=== PATIENT | female | born 1960 | race Caucasian/White ===

== ENCOUNTER 2023-09-20 05:50 | Day surgery (SDC) | payer MEDICARE ==
[2023-08-02 13:15] VITALS: BP 120/83
[2023-09-13 14:04] VITALS: BP 120/83
[~2023-09-20] VITALS: Ht 167.6 cm; Wt 91.0 kg
[~2023-09-20 05:50] MED LIST: CELEBREX200 MG PO; ESCITALOPRAM OX20 MG PO; HUMIRA40 MG/0.4 SUB-Q; IBUPROFEN800 MG PO; LAMICTAL100 MG PO; LEVOTHYROXINE75 MC1 PO; LIOTHYRONINE SO5 MCG PO; LITHIUM CARBON300 MG PO; MOVE FREE ULTR1 EAC2 PO; NEURONTIN100 MG PO; OMEPRAZOLE20 MG PO; PENICILLIN V P500 MG PO; PREDNISONE5 MG PO; SEROQUEL25 MG PO
[2023-09-20 06:11] VITALS: BP 107/73
--- NOTE | 2023-09-20 07:17 | NUR ---
DS ROUNDS. 15 MINUTES. PROVIDED SUPPORTIVE PRESENCE; PROVIDED PRAYER. PT EXPRESSED GRATITUDE.
[2023-09-20 09:39] VITALS: BP 112/78
--- NOTE | 2023-09-20 09:45 | NUR ---
09/20/23 0945 Yuliet Bradley 0827 PT TO PACU FROM OR. ORAL AIRWAY IN PLACE WITH MASK AND O2 AT 10L. 0830 ORAL AIRWAY DC'D. PT OCCASIONALLY COUGHING. PT SUCTIONED FOR SCANT AMOUNT OF BLOOD TINGED SPUTUM. AIRLINE RADIO OPERATOR REPORTED THAT PT NEEDED TO BE SUCTIONED IN OR ALSO. 0833 O2 DCD. PT SATS REMEIN IN MID TO HIGH 90S. 0840 DR FIGUEROA AT BEDSIDE. 0846 PT STATES NEED TO USE BATHROOM. PT TRANSFERRED TO BATHROOM PER WC, TOLERATED WELL. PT STATED "I PASSED A LOT OF GAS AND FEEL BETTER". 0848 PT CONTINUES TO PASS GAS, IS AWAKE AND ORIENTED. 0918 PT'S IV DC'D. 0924 DC INSTRUCTIONS GIVEN - VERBAL AND WRITTEN. ALSO GAVE HANDOUTS OF DIVERTICULOSIS AND POLYPS.
--- NOTE | 2023-09-21 15:41 | OR ---
[facility] [address], [place] [address] Signed DATE OF OPERATION: 09/20/2023 SURGEON: Purvi Figueroa MD PREOPERATIVE DIAGNOSES: 1. Chronic epigastric abdominal pain. 2. Chronic diarrhea. 3. History of treated Helicobacter pylori gastritis. 4. Esophagitis. 5. Gastroesophageal reflux disease. 6. Chews snuff. 7. NSAID use. 8. Father with a history of colon cancer in his 60s. 9. Intermittent fecal incontinence. 10. Internal hemorrhoids. 11. Minimal diverticulosis. 12. History of tubular adenomatous polyp in 2021 at age 62. POSTOPERATIVE DIAGNOSES: 1. Mild diffuse gastritis. 2. Small hiatal hernia (less than or equal to 2 cm). 3. GE junction at 33 cm. 4. 5 mm polyps x2 in proximal right colon. 5. 4 mm polyp in the distal right colon. 6. 4 mm polyp at 25 cm in sigmoid colon. 7. 4 mm polyps x2 at 20 cm in sigmoid colon. 8. Minimal sigmoid diverticulosis. PROCEDURES: 1. Esophagogastroduodenoscopy with CLOtest and biopsies of the duodenum, pyloric bulb, and antrum. 2. Colonoscopy with hot biopsies and random cold biopsies. ESTIMATED BLOOD LOSS: None. INDICATIONS: Yoly is a 63-year-old female with significant bipolar disorder, seizure disorder, obstructive sleep apnea, chronic kidney disease, anxiety, and other issues. She was asked to see me for both upper and lower endoscopy. We can see her list of issues as Electronically Signed By: PURVI FIGUEROA MD 09/20/23 8629 Electronically Signed By: PURVI FIGUEROA MD 09/21/23 5110 PATIENT NAME: YOLY DAWN OPERATIVE REPORT DATE OF : 56 REPORT #: [id number] PHYSICIAN: PURVI FIGUEROA MD PCP: BILL WRAY DO REPORT IS CONFIDENTIAL AND NOT TO BE RELEASED WITHOUT AUTHORIZATION [facility] [address], [place] [address] Signed dictated above. We know she had upper and lower endoscopy in 2011 at the age 52 [address] Jamal Beltre in the [facility]. Also, she had upper and lower endoscopy in November 2021 at the age of 60 [address] Azul Riddle at [facility] in [place], [place]. She is now moved to [place], [place]. She has established with a new primary care provider. She was asked to see me as a local general surgeon to repeat the upper and lower endoscopy because of ongoing symptoms. In the office, I gave her a pamphlet on upper and lower endoscopy. We had reviewed the nature of the two tests. There is risk including, but not limited to gas bloating, crampy abdominal pain, bleeding, perforation requiring surgery, and missed diagnosis. We also reviewed the written instructions for a bowel prep line by line. In addition, because of her extensive medical history, we asked for monitored anesthesia care propofol infusion, that proved to be a patricia decision as she took a large amount of propofol and was still moving and coughing quite a bit. She had expressed understanding and wished to proceed. DESCRIPTION OF PROCEDURE: Yoly was taken into our endoscopy suite and placed in the supine semi-recumbent position. The posterior oropharynx was anesthetized with lidocaine spray. A bite block was utilized for the case. She was given monitored anesthesia care, propofol infusion per our nurse sheet hanger. The adult gastroscope was introduced and advanced under direct visualization of camera into the duodenum without difficulty. Her duodenum and pyloric channel were unremarkable. We went ahead and took a biopsy of the duodenum, pyloric channel because of the history of diarrhea. We went and took biopsies out of the antrum for CLOtest as well as pathologic review. She had mild diffuse erythematous changes throughout the stomach. There were no ulcerations. Upon retroflexion of scope, it looks like she has just a small hiatal hernia. The scope was withdrawn up through the area of the GE junction, which was compliant without stricture. There were no gastric or esophageal varices. Her Z-line actually is more or less intact. There was no distal esophagitis. There was no Sandoval mucosa. Her distal middle and upper esophagus were unremarkable. The vocal cords and her arytenoids were also unremarkable. After this, the gas was suctioned out. The gastroscope removed. Yoly tolerated her upper endoscopy quite well. Yoly was then rotated into the left lateral decubitus position. She was maintained on IV sedation with propofol per our nurse sheet hanger. A digital rectal exam was performed and this was unremarkable. She had no external hemorrhoids. She has good sphincter tone. There were no masses. The adult colonoscope was introduced, advanced all around into the cecum under direct visualization of camera without difficulty. Her prep was quite good. We could easily see the appendiceal orifice and the ileocecal valve. The scope was then slowly withdrawn. We took pictures throughout for photodocumentation. The above-mentioned polyps were easily removed with the help of hot biopsy forceps. We did see some diverticula in the sigmoid colon. They were small in size, few in number and scattered about. We also took random biopsies throughout the Electronically Signed By: PURVI FIGUEROA MD 09/20/23 4815 Electronically Signed By: PURVI FIGUEROA MD 09/21/23 2218 PATIENT NAME: YOLY DAWN OPERATIVE REPORT DATE OF : 56 REPORT #: [id number] PHYSICIAN: PURVI FIGUEROA MD PCP: BILL WRAY DO REPORT IS CONFIDENTIAL AND NOT TO BE RELEASED WITHOUT AUTHORIZATION [facility] [address] [place] [id number] Signed right transverse and left colon. The rectum itself was unremarkable. Upon retroflexion of scope, I really could not appreciate any obvious internal hemorrhoids today. After this, the gas was suctioned out, colonoscope removed. Yoly tolerated the procedure quite well. RECOMMENDATIONS: I will see Yoly back in my office in 7 to 14 days to review her results. Purvi Figueroa MD [facility]/REESEL /[id number] cc: Bill Wray DO Patient Chart Purvi Figueroa MD Copies: BILL WRAY ANDREW L MD ~ Electronically Signed By: PURVI FIGUEROA MD 09/20/23 1128 Electronically Signed By: PURVI FIGUEROA MD 09/21/23 1638 PATIENT NAME: YOLY DAWN OPERATIVE REPORT DATE OF : 56 REPORT #: [id number] PHYSICIAN: PURVI FIGUEROA MD PCP: BILL WRAY DO REPORT IS CONFIDENTIAL AND NOT TO BE RELEASED WITHOUT AUTHORIZATION
--- NOTE | 2023-09-22 14:18 | PATH ---
[facility] [address] [place], [place] [address] Signed SPECIMEN(S): A DUODENAL BIOPSY SPECIMEN(S): B DUODENAL BULB BIOPSY SPECIMEN(S): C ANTRUM/PYLORUS BIOPSY SPECIMEN(S): D MID HEPATIC FLEXURE COLON POLYP SPECIMEN(S): E RANDOM COLON BIOPSY SPECIMEN(S): F DISTAL HEPATIC FLEXURE COLON POLYP SPECIMEN(S): G SIGMOID POLYP AT 25 CM SPECIMEN(S): H SIGMOID POLYP AT 20 CM SPECIMEN SOURCE: A. DUODENAL BIOPSY B. DUODENAL BULB BIOPSY C. ANTRUM/PYLORUS BIOPSY D. MID HEPATIC FLEXURE COLON POLYP E. RANDOM COLON BIOPSY F. DISTAL HEPATIC FLEXURE COLON POLYP G. SIGMOID POLYP AT 25 CM H. SIGMOID POLYP AT 20 CM CLINICAL HISTORY: EGD/colonoscopy. Chronic diarrhea, epigastric pain. FINAL PATHOLOGIC DIAGNOSIS: A. Duodenal biopsy: - Benign duodenal mucosa, negative for specific diagnostic abnormality. B. Duodenal bulb biopsy: - Benign duodenal mucosa, negative for atypical epithelial features or pathologic inflammation. C. Antrum/pylorus biopsy: - Benign gastric-type mucosa with focal slight chronic inflammation. - Negative for evidence of Helicobacter organisms on routine HE stained sections. D. Mid hepatic flexure colon polyp: - Tubular adenoma (multiple fragments). E. Random colon biopsy: - Benign colonic mucosa, negative for specific diagnostic abnormality. F. Distal hepatic flexure colon polyp: - Tubular adenoma (two fragments). G. Sigmoid polyp at 25 cm: - Tubular adenoma (one fragment). H. Sigmoid polyp at 20 cm: PATIENT NAME: RODRIGO BURGOS PATHOLOGY DATE OF : 56 REPORT #: [id number] PHYSICIAN: AILEEN CABRERA PCP: MAGDALENA WRAY DO REPORT IS CONFIDENTIAL AND NOT TO BE RELEASED WITHOUT AUTHORIZATION [facility] [address] [place], [place] [address] Signed - Tubular adenoma (one fragment). JVR:jonny MICROSCOPIC EXAMINATION: Histologic sections of all submitted blocks are examined by light microscopy. These findings, together with the gross examination, support the pathologic diagnosis. GROSS DESCRIPTION: A. The specimen, labeled and designated "Veronica Burgos," and designated on the requisition "duodenum (NOS) biopsy," is received in formalin and consists of one rosales soft tissue fragment measuring 0.3 cm, the specimen is submitted entirely in (A1). B. The specimen, labeled and designated "Veronica Burgos," and designated on the requisition "duodenum bulb biopsy," is received in formalin and consists of one rosales soft tissue fragment measuring 0.2 cm, the specimen is submitted entirely in (B1). C. The specimen, labeled and designated "Veronica Burgos," and designated on the requisition "stomach, antrum/pylorus biopsy," is received in formalin and consists of one rosales soft tissue fragment measuring 0.3 cm, the specimen is submitted entirely in (C1). D. The specimen, labeled and designated "Veronica Burgos," and designated on the requisition "colon, hepatic flexure mid polypectomy," is received in formalin and consists of multiple fragments of rosales soft tissue measuring 2.0 x 0.6 x 0.2 cm in aggregate, all specimens are submitted entirely in (D1). E. The specimen, labeled and designated "Veronica Burgos," and designated on the requisition "random colon biopsies," is received in formalin and consists of three rosales soft tissue fragments measuring 0.3 to 0.6 cm, all specimens are submitted entirely in (E1). F. The specimen, labeled and designated "Veronica Burgos" and designated on the requisition "colon, distal hepatic flexure polypectomy," is received in formalin and consists of four rosales soft tissue fragments measuring 0.1 to 0.3 cm, all specimens are submitted entirely in (F1). G. The specimen, labeled and designated "Veronica Burgos," and designated on the requisition "colon, sigmoid polypectomy at 25 cm," is received in formalin and consists of three rosales soft tissue fragments measuring 0.2 to 0.4 cm, all specimens are submitted entirely in (G1). H. The specimen, labeled and designated "Veronica Burgos" and designated on the PATIENT NAME: RODRIGO BURGOS PATHOLOGY DATE OF : 56 REPORT #: [id number] PHYSICIAN: AILEEN CABRERA PCP: MAGDALENA WRAY DO REPORT IS CONFIDENTIAL AND NOT TO BE RELEASED WITHOUT AUTHORIZATION [facility] [address], [place] [address] Signed requisition "colon, sigmoid polypectomy at 20 cm," is received in formalin and consists of two rosales soft tissue fragments measuring 0.3 to 0.4 cm, all specimens are submitted entirely in (H1). MMA (under the direct supervision of a pathologist) The Gross Description was prepared using a voice recognition system. The report was reviewed for accuracy; however, sound-alike word errors, addition and/or deletions may occur. If there is any question about this report, please contact Client Services. ADDITIONAL NOTES: Immunohistochemical and/or in situ hybridization studies if performed in this case included appropriate positive controls that reacted as expected. This test was developed and its performance characteristics determined by [facility]. It has not been cleared or approved by the U.S. Food and Drug Administration. The FDA has determined that such clearance or approval is not necessary. This test is used for clinical purposes. It should not be regarded as investigational or for research. [facility] is certified under the Clinical Laboratory Improvement Amendments of 1988 (CLIA) as qualified to perform high complexity clinical laboratory testing. PERFORMING LABORATORY: Technical component was performed by [facility], [address] [place] [id number] (CLIA# [id number]). Professional interpretation was performed by [facility], [address] [place] [id number] (CLIA#: [id number]). Diagnostician: Kleber Irizarry MD Pathologist Electronically Signed 09/22/2023 Copies: ~ PATIENT NAME: RODRIGO BURGOS PATHOLOGY DATE OF : 56 REPORT #: [id number] PHYSICIAN: [email or web address] PCP: MAGDALENA WRAY DO REPORT IS CONFIDENTIAL AND NOT TO BE RELEASED WITHOUT AUTHORIZATION
== END 2023-09-20 09:25 | disposition home or self-care (01) ==
LOC: OPS 05:50 → DS 05:50 → OPS 09:00
PROVIDERS: ATTEND Colon & Rectal Surgery
PROC: 0DBM8ZX Excision of Descending Colon, Via Natural or Artificial Opening Endoscopic, Diagnostic (ICD-10-PCS; 2023-09-20)
PROC: 0DBL8ZX Excision of Transverse Colon, Via Natural or Artificial Opening Endoscopic, Diagnostic (ICD-10-PCS; 2023-09-20)
PROC: 0DB98ZX Excision of Duodenum, Via Natural or Artificial Opening Endoscopic, Diagnostic (ICD-10-PCS; principal; 2023-09-20 07:30)
PROC: 0DB68ZX Excision of Stomach, Via Natural or Artificial Opening Endoscopic, Diagnostic (ICD-10-PCS; 2023-09-20 07:30)
DX: D12.5 Benign neoplasm of sigmoid colon (principal); D12.3 Benign neoplasm of transverse colon; K52.9 Noninfective gastroenteritis and colitis, unspecified; K20.90 Esophagitis, unspecified without bleeding; K21.9 Gastro-esophageal reflux disease without esophagitis; K64.8 Other hemorrhoids; K57.30 Diverticulosis of large intestine without perforation or abscess without bleeding
CPT/HCPCS: 00813; 36415; 87077; 88305; J2704; J2920; J7121